=== PATIENT | male | born 1985 | race Caucasian/White ===

== ENCOUNTER 2020-01-27 06:28 | Emergency (ER) | payer OTHER, SELFPAY ==
[2020-01-27 06:30] VITALS: BP 125/80; PULSE 94; RESP 20; TEMP 35.7; O2SAT 96
[2020-01-27] MEDS: methylPREDNISolone SOD SUCC 125 MG VIAL IM (06:50)
[2020-01-27] MEDS: IPRATROPIUM 0.5 MG/ALBUTEROL SULFATE 2.5 MG AMPUL.NEB 3 ML INHALATION (06:54)
[2020-01-27 06:55] VITALS: PULSE 93; RESP 16
[2020-01-27 07:00] VITALS: PULSE 94; RESP 16
--- NOTE | 2020-01-27 07:01 | ED.ASTHMA ---
HPI - Asthma General Chief Complaint: Asthma Stated Complaint: asthma problems Time Seen by Provider: 01/27/20 07:10 Source: patient Mode of arrival: ambulatory Limitations: no limitations History of Present Illness HPI Narrative: 34-year-old male patient with a known history of asthma presents with chief complaints of shortness of breath and wheezing that has been progressively getting worse since Monday. Patient uses albuterol nebulizer treatments for this and he states that his last treatment was this morning at 4:00 a.m. and he ran out of medications. The patient is a nonsmoker has quit approximately 2 years ago when his asthma started becoming more frequent. Patient states that he usually gets this episode every 4-6 months and needs to come into the ER and get a prescription for steroids as well as renew his albuterol. he denies any associated fever or for runny nose. Patient states that he has a cough with production of clear sputum. The patient is otherwise in good health. He is unaware of any environmental allergies. MD complaint: asthma attack Severity: moderate Context: none known Asthma History: adult onset Treatments Prior to Arrival: inhaled bronchodilator Related Data Current Asthma Therapy: inhaled bronchodilator Home Medications Medication Instructions Recorded Confirmed albuterol sulfate 1 puff INHALATION QID PRN 01/27/20 01/27/20 Allergies Allergy/AdvReac Type Severity Reaction Status Date / Time No Known Allergies Allergy Verified 01/27/20 07:26 Review of Systems Review of Systems: All systems reviewed & are unremarkable except as noted in HPI and below Cardiovascular: Cardiovascular: Reports no additional cardiovascular complaints Respiratory: Respiratory: Reports as per HPI, Reports no additional respiratory complaints, Reports dyspnea and Reports wheezing [facility] Past Medical History Medical History (Updated 01/27/20 @ 07:26 by Tere Deluna MD) Asthma Social History Social History (Updated 01/27/20 @ 07:21 by Tere Deluna MD) Smoking status: Former smoker Exam Const: General: healthy appearing, no acute distress and alert Orientation/consciousness: patient oriented x3 HENMT: Head: normal to inspection Eyes: Conjunctivae: conjunctivae normal Pupils: Equal, round and reactive pupils present Neck: Neck: normal visual inspection Chest: Chest palpation & inspection: normal inspection of the chest Resp: Effort & Inspection: normal respiratory effort and uses accessory muscles Auscultation: wheezes expiratory wheezes and lower bilaterally Cardio: Rate: regular rate Rhythm: regular rhythm GI: Inspection: normal to inspection GI Palp: Yes Soft to palpation and No Tenderness to palpation present (GI) Skin: General skin exam: normal color, no rashes or lesions noted and dry skin Neuro: General: patient oriented x3, moves all extremities and CN's II-XI intact bilaterally Speech: normal speech Gait exam (Neuro): Normal gait present Psych: Mental Status: mental status grossly normal Course Course Emergency Course: Patient has responded very well to a DuoNeb treatment in the ER. He has also received a dose of Solu-Medrol and he is feeling better Vital Signs Vital signs: Vital Signs Pulse Rate 93 01/27/20 06:55 Respiratory Rate 16 01/27/20 06:55 Pulse Rate 93 01/27/20 06:55 Respiratory Rate 16 01/27/20 06:55 MDM - Asthma MDM Narrative Medical decision making narrative: Patient is better . Will discharge Differential Diagnosis Differential diagnosis: Likely Acute exacerbation, Status asthmaticus and Acute asthmatic bronchitis Discharge Plan Discharge Clinical Impression: Asthma with acute exacerbation Patient Disposition: Home, Self-Care Condition: Stable Instructions: Asthma (ED) Additional Instructions: Stay hydrated Return if worse Prescriptions: New albuterol sulfate 2.5 mg/0.5 mL solution for nebulization
== END 2020-01-27 07:31 | disposition home or self-care (01) ==
PROVIDERS: Emergency Provider Emergency Medicine; PCP Family Medicine
DX: J45.901 Unspecified asthma with (acute) exacerbation (principal)
CPT/HCPCS: 94640; 96372; 99283; J2930